=== PATIENT | male | born 1960 | race Two or more races ===

== ENCOUNTER 2016-10-04 12:18 | Day surgery (SDC) | payer MEDICAID ==
[2016-10-04] MEDS ORDERED: NS 1,000 ML IV SCH (13:00)
[2016-10-04] MEDS ORDERED: fentaNYL 100 MCG/2 ML INJ ONE (13:25)
[2016-10-04] MEDS ORDERED: MIDAZOLAM 2 MG/2 ML VIAL ONE (13:26)
[2016-10-04] MEDS ORDERED: LIDOCAINE 1% 300 MG/30 ML SDV ONE (13:51)
== END 2016-10-04 15:30 | disposition home or self-care (01) ==
LOC: FIMAGING 12:18
PROC: 0WPG33Z Removal of Infusion Device from Peritoneal Cavity, Percutaneous Approach (ICD-10-PCS; principal; 2016-10-04 13:35)
DX: Z49.01 Encounter for fitting and adjustment of extracorporeal dialysis catheter (principal); N18.6 End stage renal disease
CPT/HCPCS: J2250; J3010

== ENCOUNTER 2016-10-25 11:48 | Day surgery (SDC) | payer MEDICAID ==
[2016-10-25] MEDS ORDERED: NS 1,000 ML IV SCH (13:15)
[2016-10-25] MEDS ORDERED: FLUMAZENIL 0.5 MG/5 ML MDV IVP ONE (13:26)
[2016-10-25] MEDS ORDERED: MIDAZOLAM 2 MG/2 ML VIAL ONE ×2 (13:27)
[2016-10-25] MEDS ORDERED: fentaNYL 100 MCG/2 ML INJ ONE (13:27)
[2016-10-25] MEDS ORDERED: NALOXONE HCL 0.4 MG/ML INJ ONE (13:27)
[2016-10-25 15:45] VITALS: BP 122/67; RESP 15; TEMP 97.7; O2SAT 95
[2016-10-25] MEDS ORDERED: IOPAMIDOL (ISOVUE-300) 100 ML BTL ONE (15:46)
== END 2016-10-25 15:30 ==
LOC: FIMAGING 11:48
PROVIDERS: ATTEND Internal Medicine Nephrology
PROC: B51W1ZZ Fluoroscopy of Dialysis Shunt/Fistula using Low Osmolar Contrast (ICD-10-PCS; principal; 2016-10-25 14:16)
CPT/HCPCS: J1644; J2250; J2310; J3010; Q9967